=== PATIENT | female | born 1965 | race Caucasian/White ===

== ENCOUNTER → 2017-12-14 | Outpatient (CLI) | payer OTHER ==
[2017-12-14 14:23] LABS: DIRECT BILIRUBIN 0.1 mg/dL (<0.1-0.3); TOTAL BILIRUBIN 0.2 mg/dL (<0.1-1.0); TOTAL PROTEIN 7.3 g/dL (6.4-8.2)
== END ==
LOC: M.LAB 13:01
PROVIDERS: Internal Medicine Pulmonary Disease
DX: D86.9 Sarcoidosis, unspecified (principal)

== ENCOUNTER → 2017-12-15 | Outpatient (CLI) | payer OTHER ==
--- NOTE | 2017-12-15 10:56 | EKG ---
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 : 1965 Requested By: Clarence Younger Order Number: [id number] Radha MD: Ankur Butler Measurements Intervals [place] Rate: 74 P: 25 SD: 173 QRS: -12 QRSD: 98 T: 41 QT: 419 QTc: 465 Interpretive Statements Sinus rhythm nonspecific st changes Low voltage, precordial leads Compared to ECG 12/02/2016 11:25:21 Low QRS voltage now present Electronically Signed On 12-15-2017 10:56:04 CDT by Ankur Butler [email or web address] <ELECTRONICALLY SIGNED> By: Ankur Butler MD, [facility] 12/15/17 [id number] Ankur Butler MD, [facility] /EPI
== END ==
LOC: M.CRD 09:36
DX: D86.0 Sarcoidosis of lung (principal)

== ENCOUNTER → 2018-01-05 | Outpatient (CLI) | payer OTHER ==
--- NOTE | 2018-01-05 14:02 | 2DMMODE ---
[place] [address] 2 D/M-MODE ECHOCARDIOGRAM Name: JHONY NUNEZ Room: [facility]#: [id number] Admission: 01/05/18 Attend Phys: Clarence Younger Discharge: Date of : 65 Date of Service: 01/05/18 1402 Report #: [id number] THIS REPORT FOR: //name// APPROVED REPORT Study performed: 01/05/2018 13:00:34 EXAM: Comprehensive 2D, Doppler, and color-flow Echocardiogram Patient Location: Out-Patient Status: routine BSA: 2.29 HR: 70 bpm BP: 135/88 mmHg Other Information Study Quality: Fair Indications Dyspnea 2D Dimensions LVEF(%): 63.54 (>50%) IVSd: 11.31 (7-11mm) LVOT Diam: 20.36 (18-24mm) LVDd: 51.16 mm PWd: 11.70 (7-11mm) Ascending Ao: 24.63 (22-36mm) LVDs: 33.41 (25-40mm) Aortic Root: 23.62 mm Hopper's LVEF: 63.54 % Volumes Left Atrial Volume (Systole) LA ESV Index: 8.90 mL/m2 Aortic Valve AoV Peak Reddy.: 1.32 m/s AO Peak Gr.: 6.97 mmHg LVOT Max P.93 mmHg AO Mean Gr.: 3.67 mmHg LVOT Mean P.92 mmHg LVOT Max V: 0.99 m/s AO V2 VTI: 22.09 cm LVOT Mean V: 0.64 m/s TNOIO (VTI): 2.81 cm2 LVOT V1 VTI: 19.08 cm Mitral Valve E/A Ratio: 0.83 MV Decel. Time: 267.28 [place] [address] 2 D/M-MODE ECHOCARDIOGRAM Name: JHONY NUNEZ Room: [facility]#: [id number] Admission: 01/05/18 Attend Phys: Clarence Younger Discharge: Date of : 65 Date of Service: 01/05/18 1402 Report #: [id number] MV E Max Reddy.: 0.56 m/s MV PHT: 77.51 ms MVA (PHT): 2.84 cm2 TDI E/Lateral E': 6.22 E/Medial E': 6.22 Medial E' Reddy.: 0.09 m/s Lateral E' Reddy.: 0.09 m/s Pulmonary Valve PV Peak Reddy.: 0.95 m/s PV Peak Gr.: 3.61 mmHg Left Ventricle The left ventricle is normal size. There is normal LV segmental wall motion. There is normal left ventricular wall thickness. Left ventricular systolic function is normal. LVEF is 60-65%. Grade I - abnormal relaxation pattern. Right Ventricle The right ventricle is normal size. The right ventricular systolic function is normal. Atria The left atrium size is normal. The right atrium size is normal. Aortic Valve The aortic valve is normal in structure. No aortic regurgitation is present. There is no aortic valvular stenosis. Mitral Valve The mitral valve is normal in structure. There is no mitral valve regurgitation noted. No evidence of mitral valve stenosis. Tricuspid Valve The tricuspid valve is normal in structure. There is no tricuspid valve regurgitation noted. Pulmonic Valve The pulmonary valve is normal in structure. There is no pulmonic valvular regurgitation. Great Vessels The aortic root is normal in size. IVC is normal in size and collapses with >50% [place] [address] 2 D/M-MODE ECHOCARDIOGRAM Name: JHOYN NUNEZ Room: [facility]#: [id number] Admission: 01/05/18 Attend Phys: Clarence Younger Discharge: Date of : 65 Date of Service: 01/05/18 1402 Report #: [id number] Pericardium There is no pericardial effusion. <Conclusion> The left ventricle is normal size. There is normal left ventricular wall thickness. Left ventricular systolic function is normal. LVEF is 60-65%. Grade I - abnormal relaxation pattern. IVC is normal in size and collapses with >50% inspiration <ELECTRONICALLY SIGNED> By: Azeem Sim MD, FACC 01/05/181401 01 01 Azeem Sim MD, FACC /INF
== END ==
LOC: M.CRD 12:30
DX: D86.0 Sarcoidosis of lung (principal); R06.09 Other forms of dyspnea

== ENCOUNTER 2018-06-21 17:03 | Emergency (ER) | payer OTHER ==
[~2018-06-21] VITALS: Ht 162.6 cm; Wt 131.5 kg
[2018-06-21 17:48] LABS: ABSOLUTE EOSINOPHILS 0.1 thou/uL (0.0-0.7); ABSOLUTE LYMPHOCYTES 2.1 thou/uL (0.8-5.3); ABSOLUTE MONOCYTES 0.6 thou/uL (0.0-1.2); BASOPHILS 0.7 %; EOSINOPHILS 2.1 %; HEMATOCRIT 41.2 % (37.0-47.0); HEMOGLOBIN 13.8 gm/dL (12.0-15.0); LYMPHOCYTES 30.1 %; MCH 28.4 pg (26.0-34.0); MCHC 33.4 g/dL (28.0-37.0); MONOCYTES 9.4 %; MPV 8.4 fl. (7.2-11.1); NUCLEATED RBCS 0 /100WBC; PLATELET COUNT* 231 thou/uL (150-400); POLYS 57.7 %; RBC 4.85 mil/uL (4.20-5.00); RDW-CV 14.5 % (10.5-14.5); WBC 6.9 thou/uL (4.0-11.0)
[2018-06-21 17:58] LABS: ANION GAP 7 mmol/L (7-16); BUN 10 mg/dL (7-18); CALCIUM 9.1 mg/dL (8.5-10.1); CHLORIDE 102 mmol/L (98-107); CO2 28 mmol/L (21-32); CREATININE 0.7 mg/dL (0.6-1.3); GLUCOSE 108 mg/dL (70-99); POTASSIUM 3.7 mmol/L (3.5-5.1); SODIUM 137 mmol/L (136-145)
[2018-06-21 18:04] LABS: ALKALINE PHOSPHATASE 150 U/L (46-116); SGOT 29 U/L (15-37); SGPT 32 U/L (30-65); TOTAL BILIRUBIN 0.4 mg/dL (<0.1-1.0); TOTAL PROTEIN 7.9 g/dL (6.4-8.2); TROPONIN-I LEVEL <0.06 ng/mL (<0.06)
[2018-06-21 19:21] VITALS: BP 135/82
--- NOTE | 2018-06-22 14:31 | EKG ---
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 : 1965 Requested By: Verna Epstein Order Number: [id number] MD: Azeem Sim Measurements Intervals [place] Rate: 72 P: 1 ND: 152 QRS: -10 QRSD: 99 T: 37 QT: 440 QTc: 482 Interpretive Statements Sinus rhythm Abnormal R-wave progression, late transition Borderline T abnormalities, anterior leads Compared to ECG 12/15/2017 09:51:07 T-wave abnormality now present ST (T wave) deviation no longer present Electronically Signed On 06-22-2018 14:31:10 [employer] by Azeem Sim [email or web address] <ELECTRONICALLY SIGNED> By: Azeem Sim MD, FAC 06/22/18 1431 1710 1710 Azeem Smi MD, [facility] /EPI
== END 2018-06-21 19:23 | disposition home or self-care (01) ==
LOC: M.ERS 17:03
PROVIDERS: Nurse Practitioner Family
DX: R51 Headache (principal)

== ENCOUNTER → 2018-11-15 | Outpatient (CLI) | payer OTHER | LOC: M.ULTRA 12:30 | DX: M79.89 Other specified soft tissue disorders (principal); Z91.09 Other allergy status, other than to drugs and biological substances ==